=== PATIENT | male | born 1950 | race Two or more races ===

== ENCOUNTER 2018-04-18 17:07 | Emergency (ER) | payer MEDICARE, OTHER ==
[~2018-04-18] VITALS: Ht 172.7 cm; Wt 108.9 kg
[2018-04-18 20:17] LABS: Basophils # (auto) 0 uL; Basophils % (auto) 0.3 % (0.0-2.0); Eosinophils # (auto) 0 uL; Eosinophils % (auto) 0.3 % (0.0-7.0); Hematocrit 47.7 % (41.0-53.0); Hemoglobin 16.1 g/dL (13.5-17.5); Lymphocytes # (auto) 0.9 uL; Lymphocytes % (auto) 6.9 % (10.0-50.0); Mean Corpuscular Hemoglobin 31.3 pg (28.0-32.0); Mean Corpuscular Hgb Conc. 33.7 g/dL (32.0-36.0); Monocytes # (auto) 0.7 uL; Neutrophils # (auto) 11.9 uL; Neutrophils % (auto) 87.5 % (37.0-80.0); Nucleated Red Blood Cells % 0.1 %; Platelet Count (auto) 192 10^3/uL (140-450); Red Blood Cells 5.13 10^6/uL (4.5-5.90); Red Cell Distribution Width 14.1 % (11.8-14.3); White Blood Cell 13.6 10^3/uL (4.4-10.8)
[2018-04-18 20:18] LABS: INR 0.99 (0.9-1.15); Partial Thromboplastin Time 28.2 sec (23.78-33.04); Prothrombin Time 10.6 sec (9.27-12.13)
[2018-04-18 20:21] LABS: Albumin 4.1 g/dL (3.4-5.0); Anion Gap 6 (5-15); Calcium 8.7 mg/dL (8.5-10.1); Carbon Dioxide 28 mmol/L (21-32); Chloride 105 mmol/L (98-107); Glucose 146 mg/dL (74-106); Lipase 74 U/L (73-393); Potassium 4.3 mmol/L (3.5-5.1); Sodium 139 mmol/L (136-145)
[2018-04-18 20:27] LABS: Alanine Aminotransferase 73 U/L (16-61); Alkaline Phosphatase 121 U/L (45-117); Aspartate Aminotransferase 51 U/L (15-37); BUN/Creatinine Ratio 12.8; Blood Urea Nitrogen 17 mg/dL (7-18); GFR African American 69 mL/min; GFR Non-African American 57 mL/min; Total Protein 7.9 g/dL (6.4-8.2)
[2018-04-18] MEDS ORDERED: ONDANSETRON HCL 4 MG/2 ML VIAL IV ONE (23:45)
[2018-04-18] MEDS ORDERED: SODIUM CHLORIDE 0.9% 1,000 ML IV ONE (23:45)
[2018-04-18] MEDS ORDERED: MORPHINE SULFATE 10 MG/ML INJ 1ML SDV IV ONE (23:45)
[2018-04-19 01:28] VITALS: BP 153/58
[2018-04-19 02:21] LABS: Urine Bacteria NONE SEEN /hpf (None Seen); Urine Blood 2+ /uL (Negative); Urine Mucus FEW (None Seen); Urine Specific Gravity 1.024 (1.001-1.035); Urine WBC 6 /hpf (0 - 3)
== END 2018-04-19 01:48 | disposition home or self-care (01) ==
LOC: EDBD 17:07 → ER 17:14
DX: N20.0 Calculus of kidney (principal); N39.0 Urinary tract infection, site not specified; N13.30 Unspecified hydronephrosis; E11.9 Type 2 diabetes mellitus without complications; I10 Essential (primary) hypertension; E78.5 Hyperlipidemia, unspecified
CPT/HCPCS: 36415; 74176; 80053; 81001; 83690; 84484; 85025; 85610; 85730; 93005; 96361; 96374; 96375; 99284; J2270; J2405; J7030

== ENCOUNTER 2021-04-25 09:49 | Inpatient (IN) | payer BC, MEDICARE ==
[~2021-04-25] VITALS: Ht 172.7 cm; Wt 104.8 kg
[2021-04-25 11:13] LABS: Basophils # (auto) 0 10 ^3/uL (0-0.2); Basophils % (auto) 0.6 % (0.0-2.0); Eosinophils # (auto) 0 10 ^3/uL (0-0.8); Eosinophils % (auto) 0.3 % (0.0-7.0); Hematocrit 45.5 % (41.0-53.0); Hemoglobin 15.7 g/dL (13.5-17.5); Lymphocytes # (auto) 0.7 10 ^3/uL (0.4-5.4); Lymphocytes % (auto) 12.4 % (10.0-50.0); Mean Corpuscular Hemoglobin 30.5 pg (28.0-32.0); Mean Corpuscular Hgb Conc. 34.6 g/dL (32.0-36.0); Mean Corpuscular Volume 88.3 fL (80.0-100.0); Monocytes # (auto) 0.6 10 ^3/uL (0-1.3); Monocytes % (auto) 10.6 % (0.0-12.0); Neutrophils # (auto) 4.1 10 ^3/uL (1.6-8.6); Neutrophils % (auto) 76.1 % (37.0-80.0); Nucleated Red Blood Cells % 0.1 %; Red Blood Cells 5.16 10^6/uL (4.5-5.90); Red Cell Distribution Width 13.3 % (11.8-14.3); White Blood Cell 5.4 10^3/uL (4.4-10.8)
[2021-04-25 11:29] LABS: INR 1.04 (0.9-1.15); Partial Thromboplastin Time 32.1 sec (23.6-33.0)
[2021-04-25 11:36] LABS: Albumin 3.6 g/dL (3.4-5.0); BUN/Creatinine Ratio 13.8; Calcium 8.9 mg/dL (8.5-10.1); Magnesium 2.7 mg/dL (1.6-2.6); Potassium 4.4 mmol/L (3.5-5.1)
[2021-04-25 11:50] LABS: Bilirubin, Total 0.5 mg/dL (0.2-1.0); Total Protein 7.8 g/dL (6.4-8.2)
[2021-04-25] MEDS ORDERED: CEFTRIAXONE SODIUM 2 GM in D5W 5% 50 ML IV ONE (12:15)
[2021-04-25] MEDS ORDERED: DexAMETHasone SOD PHOS 10MG/1ML VIAL INJ IV ONE (12:15)
[2021-04-25] MEDS ORDERED: AZITHROMYCIN 500MG/ 250ML 250 ML IV ONE ×2 (12:15→15:45)
[2021-04-25] MEDS ORDERED: MORPHINE SULFATE INJECTION 2 MG/ML SYRG IV PRN ×3 (13:45→16:15)
[2021-04-25] MEDS ORDERED: NITROGLYCERIN 0.4 MG SL TAB SL PRN ×2 (13:45→16:15)
[2021-04-25] MEDS ORDERED: ACETAMINOPHEN 500 MG TAB PO PRN (15:45)
[2021-04-25] MEDS ORDERED: REMDESIVIR PER PHARMACY 0 ML IV SCH (15:45)
[2021-04-25] MEDS ORDERED: DEXTROSE (50%) 50ML SYRG IV PRN (16:00)
[2021-04-25] MEDS ORDERED: hydrALAZINE HCL 20 MG/ML VL IV PRN (16:00)
[2021-04-25] MEDS ORDERED: ONDANSETRON HCL 4 MG/2 ML VIAL IV PRN (16:15)
[2021-04-25] MEDS ORDERED: ALUM & MAG HYDROX-SIMETH LIQ(MAALOX) 30 ML PO PRN (16:15)
[2021-04-25] MEDS ORDERED: HYDROcodone-ACET 5/325MG TAB PO PRN (16:15)
[2021-04-25] MEDS ORDERED: DOCUSATE SOD 100 MG CAP PO PRN (16:15)
[2021-04-25] MEDS ORDERED: LORazepam 0.5 MG TAB PO PRN (16:15)
[2021-04-25] MEDS ORDERED: cefTRIAXone 1GM/50ML D5W 50 ML IV ONE (16:43)
[2021-04-25] MEDS ORDERED: ASPirin 81 mg TAB PO ONE (16:49)
[2021-04-25] MEDS ORDERED: REMDESIVIR 200 MG in NS 210ml LOADING DOSE ADULT IV ONE (19:00)
[2021-04-25] MEDS: ACCU-CHEK COMFORT CURVE STRIP VI SCH ×2 (19:43→22:04)
[2021-04-25] MEDS: InsuLIN REG 1unit/0.01ml Soln (100units/ml) SC SCH ×2 (19:46→22:13)
[2021-04-25 20:30] LABS: Basophils # (auto) 0 10 ^3/uL (0-0.2); Basophils % (auto) 0.3 % (0.0-2.0); Eosinophils # (auto) 0 10 ^3/uL (0-0.8); Eosinophils % (auto) 0.1 % (0.0-7.0); Hematocrit 42.8 % (41.0-53.0); Hemoglobin 14.8 g/dL (13.5-17.5); Lymphocytes # (auto) 0.5 10 ^3/uL (0.4-5.4); Lymphocytes % (auto) 10.4 % (10.0-50.0); Mean Corpuscular Hemoglobin 30.6 pg (28.0-32.0); Mean Corpuscular Hgb Conc. 34.5 g/dL (32.0-36.0); Mean Corpuscular Volume 88.5 fL (80.0-100.0); Monocytes # (auto) 0.2 10 ^3/uL (0-1.3); Neutrophils % (auto) 84.2 % (37.0-80.0); Red Blood Cells 4.84 10^6/uL (4.5-5.90); Red Cell Distribution Width 13.3 % (11.8-14.3); White Blood Cell 4.7 10^3/uL (4.4-10.8)
[2021-04-25 20:47] LABS: Albumin 3.3 g/dL (3.4-5.0); Calcium 8.2 mg/dL (8.5-10.1); Magnesium 3.1 mg/dL (1.6-2.6); Potassium 5.2 mmol/L (3.5-5.1)
[2021-04-25 20:56] LABS: BUN/Creatinine Ratio 15.7; Bilirubin, Total 0.4 mg/dL (0.2-1.0); CRP High Sensitivity 7.81 mg/dL (< 0.3); Total Protein 6.8 g/dL (6.4-8.2)
[2021-04-25 21:20] LABS: Cholesterol 113 mg/dL (< 200); HDL Cholesterol 39 mg/dL (40-59); LDL Cholesterol 55 mg/dL (< 100); Triglycerides 139 mg/dL (< 150)
[2021-04-25 22:00] VITALS: BP 155/86
[2021-04-25] MEDS: BUDESONIDE (INHALATION) 180 MCG IH IN SCH (22:00)
[2021-04-25] MEDS: ATORVASTATIN 20 MG TAB PO SCH (22:04)
[2021-04-25] MEDS: ENOXAPARIN SOD 40 MG/0.4 ML SYRINGE SC SCH (22:05)
[2021-04-25 22:37] VITALS: BP 155/86
[2021-04-25] MEDS: ALBUTEROL SULF HFA 90MCG INH 200DOSE IN PRN (22:55)
[2021-04-25 22:56] LABS: Urine Bacteria NONE SEEN /hpf (None Seen); Urine Blood Negative /uL (Negative); Urine Specific Gravity 1.026 (1.001-1.035); Urine WBC 1 /hpf (0 - 3)
[2021-04-25 23:11] LABS: Amphetamine Screen, Urine NEGATIVE (NEGATIVE); Barbiturate Scree,Urine NEGATIVE (NEGATIVE); Benzodiazephine Screen, Urine NEGATIVE (NEGATIVE); Cannabinoid Screen, Urine NEGATIVE (NEGATIVE); Cocaine Screen, Urine NEGATIVE (NEGATIVE); Opiate Scree,Urine NEGATIVE (NEGATIVE); Phencyclidine Screen, Urine NEGATIVE (NEGATIVE)
[2021-04-25] MEDS ORDERED: METO-289 PO (23:11)
[2021-04-25] MEDS ORDERED: INSLANTI SC (23:11)
[2021-04-25] MEDS ORDERED: LOSA-69 PO (23:11)
[2021-04-25] MEDS ORDERED: METF-370 PO (23:11)
[2021-04-25 23:36] LABS: Thyroid Stimulating Hormone 0.57 uIU/mL (0.358-3.74)
[2021-04-26] MEDS ORDERED: ATOR10TA PO (00:44)
[2021-04-26 05:00] VITALS: BP 164/95
[2021-04-26] MEDS: ACCU-CHEK COMFORT CURVE STRIP VI SCH ×4 (05:51→21:33)
[2021-04-26] MEDS: InsuLIN REG 1unit/0.01ml Soln (100units/ml) SC SCH ×4 (05:57→21:58)
[2021-04-26] MEDS ORDERED: cloNIDine HCL 0.1 MG TAB PO ONE (06:45)
[2021-04-26 07:08] LABS: Basophils # (auto) 0 10 ^3/uL (0-0.2); Basophils % (auto) 0.5 % (0.0-2.0); Eosinophils # (auto) 0 10 ^3/uL (0-0.8); Hematocrit 45.1 % (41.0-53.0); Hemoglobin 15.7 g/dL (13.5-17.5); Lymphocytes # (auto) 0.9 10 ^3/uL (0.4-5.4); Lymphocytes % (auto) 26.3 % (10.0-50.0); Mean Corpuscular Hgb Conc. 34.9 g/dL (32.0-36.0); Mean Corpuscular Volume 88.9 fL (80.0-100.0); Monocytes # (auto) 0.5 10 ^3/uL (0-1.3); Neutrophils % (auto) 59.2 % (37.0-80.0); Nucleated Red Blood Cells % 0.8 %; Red Blood Cells 5.07 10^6/uL (4.5-5.90); White Blood Cell 3.3 10^3/uL (4.4-10.8)
[2021-04-26 07:19] LABS: INR 1.06 (0.9-1.15); Partial Thromboplastin Time 32.7 sec (23.6-33.0)
[2021-04-26] MEDS: BUDESONIDE (INHALATION) 180 MCG IH IN SCH (08:04)
[2021-04-26] MEDS: ALBUTEROL SULF HFA 90MCG INH 200DOSE IN PRN (08:04)
[2021-04-26 09:54] LABS: Bilirubin, Total 0.4 mg/dL (0.2-1.0); Phosphorus 3.7 mg/dL (2.5-4.90); Total Protein 7.6 g/dL (6.4-8.2)
[2021-04-26] MEDS: cefTRIAXone 1GM/50ML D5W 50 ML IV SCH (10:02)
[2021-04-26] MEDS: ZINC SULFATE 220mg CAP or TAB PO SCH (10:02)
[2021-04-26] MEDS: ASPirin 81 mg TAB PO SCH (10:02)
[2021-04-26] MEDS: LOSARTAN POTASSIUM 25 MG TAB PO SCH (10:03)
[2021-04-26] MEDS: ASCORBIC ACID 1,000 MG TAB PO SCH (10:03)
[2021-04-26] MEDS: CHOLECALCIFEROL (VITD3) 2,000 UNIT CAP/TAB PO SCH (10:03)
[2021-04-26] MEDS: METOPROLOL SUCCINATE XL 50 MG TAB PO SCH (10:04)
[2021-04-26] MEDS: DexAMETHasone SOD PHOS 10MG/1ML VIAL INJ IV SCH (10:04)
[2021-04-26] MEDS: ENOXAPARIN SOD 40 MG/0.4 ML SYRINGE SC SCH ×2 (10:04→21:33)
[2021-04-26 10:07] LABS: BUN/Creatinine Ratio 14.6; Calcium 8.5 mg/dL (8.5-10.1); Magnesium 3.2 mg/dL (1.6-2.6)
[2021-04-26 10:08] LABS: Uric Acid 4.2 mg/dL (3.5-7.2)
[2021-04-26 10:24] VITALS: BP 142/79
[2021-04-26] MEDS: AZITHROMYCIN 500MG/ 250ML 250 ML IV SCH (11:02)
[2021-04-26 13:00] VITALS: BP 149/85
[2021-04-26] MEDS: REMDESIVIR 100mg 100 MG in SODIUM CHL 0.9% 230 ML IV SCH (15:30)
[2021-04-26 15:40] VITALS: BP 151/84
[2021-04-26 16:59] VITALS: BP 143/81
[2021-04-26] MEDS: ATORVASTATIN 20 MG TAB PO SCH (21:33)
[2021-04-26 22:00] VITALS: BP 160/77
[2021-04-27] MEDS: BUDESONIDE (INHALATION) 180 MCG IH IN SCH ×3 (01:25→21:20)
[2021-04-27] MEDS: ALBUTEROL SULF HFA 90MCG INH 200DOSE IN PRN ×2 (01:25→09:41)
[2021-04-27 05:00] VITALS: BP 138/71
[2021-04-27] MEDS: ACCU-CHEK COMFORT CURVE STRIP VI SCH ×4 (06:04→22:00)
[2021-04-27] MEDS: InsuLIN REG 1unit/0.01ml Soln (100units/ml) SC SCH ×4 (06:16→22:00)
[2021-04-27] MEDS: CHOLECALCIFEROL (VITD3) 2,000 UNIT CAP/TAB PO SCH (08:37)
[2021-04-27] MEDS: ASPirin 81 mg TAB PO SCH (08:37)
[2021-04-27] MEDS: DexAMETHasone SOD PHOS 10MG/1ML VIAL INJ IV SCH (08:38)
[2021-04-27] MEDS: ASCORBIC ACID 1,000 MG TAB PO SCH (08:38)
[2021-04-27] MEDS: LOSARTAN POTASSIUM 25 MG TAB PO SCH (08:38)
[2021-04-27] MEDS: ENOXAPARIN SOD 40 MG/0.4 ML SYRINGE SC SCH ×2 (08:39→22:00)
[2021-04-27] MEDS: METOPROLOL SUCCINATE XL 50 MG TAB PO SCH (08:39)
[2021-04-27] MEDS: cefTRIAXone 1GM/50ML D5W 50 ML IV SCH (08:39)
[2021-04-27] MEDS: ZINC SULFATE 220mg CAP or TAB PO SCH (08:39)
[2021-04-27 09:00] VITALS: BP 138/76
[2021-04-27] MEDS: AZITHROMYCIN 500MG/ 250ML 250 ML IV SCH (09:39)
[2021-04-27 13:00] VITALS: BP 146/79
[2021-04-27] MEDS: REMDESIVIR 100mg 100 MG in SODIUM CHL 0.9% 230 ML IV SCH (13:53)
[2021-04-27 14:43] LABS: Potassium 4.8 mmol/L (3.5-5.1)
[2021-04-27 14:54] LABS: BUN/Creatinine Ratio 20.4; Calcium 8.8 mg/dL (8.5-10.1)
[2021-04-27] MEDS: PANTOPRAZOLE 40 MG/10 ML VIAL INJ IV SCH ×2 (15:15→22:00)
[2021-04-27] MEDS ORDERED: INSULIN LISPRO (HUMAN) 100 UNITS/ML ML SC ONE (15:15)
[2021-04-27 17:00] VITALS: BP 138/72
[2021-04-27 22:00] VITALS: BP 134/84
[2021-04-27] MEDS: ATORVASTATIN 20 MG TAB PO SCH (22:00)
[2021-04-28 05:00] VITALS: BP 142/75
[2021-04-28] MEDS: ACCU-CHEK COMFORT CURVE STRIP VI SCH ×4 (06:30→22:02)
[2021-04-28] MEDS: InsuLIN REG 1unit/0.01ml Soln (100units/ml) SC SCH ×4 (06:34→22:13)
[2021-04-28] MEDS: BUDESONIDE (INHALATION) 180 MCG IH IN SCH ×2 (07:57→21:45)
[2021-04-28] MEDS: ALBUTEROL SULF HFA 90MCG INH 200DOSE IN PRN ×2 (07:57→21:46)
[2021-04-28 08:40] LABS: BUN/Creatinine Ratio 22.4; Bilirubin, Total 0.5 mg/dL (0.2-1.0); Calcium 8.8 mg/dL (8.5-10.1); Total Protein 6.7 g/dL (6.4-8.2)
[2021-04-28 09:00] VITALS: BP 143/79
[2021-04-28] MEDS: ENOXAPARIN SOD 40 MG/0.4 ML SYRINGE SC SCH ×2 (10:00→22:15)
[2021-04-28] MEDS: cefTRIAXone 1GM/50ML D5W 50 ML IV SCH (10:20)
[2021-04-28] MEDS: ZINC SULFATE 220mg CAP or TAB PO SCH (10:21)
[2021-04-28] MEDS: PANTOPRAZOLE 40 MG/10 ML VIAL INJ IV SCH ×2 (10:21→22:15)
[2021-04-28] MEDS: AZITHROMYCIN 500MG/ 250ML 250 ML IV SCH (10:21)
[2021-04-28] MEDS: ASPirin 81 mg TAB PO SCH (10:21)
[2021-04-28] MEDS: DexAMETHasone SOD PHOS 10MG/1ML VIAL INJ IV SCH (10:21)
[2021-04-28] MEDS: ASCORBIC ACID 1,000 MG TAB PO SCH (10:22)
[2021-04-28] MEDS: CHOLECALCIFEROL (VITD3) 2,000 UNIT CAP/TAB PO SCH (10:22)
[2021-04-28] MEDS: METOPROLOL SUCCINATE XL 50 MG TAB PO SCH (10:22)
[2021-04-28 13:00] VITALS: BP 119/70
[2021-04-28] MEDS: REMDESIVIR 100mg 100 MG in SODIUM CHL 0.9% 230 ML IV SCH (15:00)
[2021-04-28 16:52] VITALS: BP 135/71
[2021-04-28 22:00] VITALS: BP 133/71
[2021-04-28] MEDS: INSULIN LANTUS (GLARGINE) 1 /0.01ml (100units/ml) SC SCH (22:02)
[2021-04-28] MEDS: ATORVASTATIN 20 MG TAB PO SCH (22:15)
[2021-04-29 05:00] VITALS: BP 124/70
[2021-04-29] MEDS: BUDESONIDE (INHALATION) 180 MCG IH IN SCH (05:54)
[2021-04-29] MEDS: ALBUTEROL SULF HFA 90MCG INH 200DOSE IN PRN (05:55)
[2021-04-29] MEDS: ACCU-CHEK COMFORT CURVE STRIP VI SCH (06:46)
[2021-04-29] MEDS: InsuLIN REG 1unit/0.01ml Soln (100units/ml) SC SCH (06:50)
[2021-04-29] MEDS: INSULIN LANTUS (GLARGINE) 1 /0.01ml (100units/ml) SC SCH (06:52)
[2021-04-29 08:22] LABS: Basophils # (auto) 0 10 ^3/uL (0-0.2); Basophils % (auto) 0.1 % (0.0-2.0); Eosinophils # (auto) 0 10 ^3/uL (0-0.8); Eosinophils % (auto) 0.1 % (0.0-7.0); Hemoglobin 14.1 g/dL (13.5-17.5); Lymphocytes # (auto) 1.2 10 ^3/uL (0.4-5.4); Lymphocytes % (auto) 24.6 % (10.0-50.0); Mean Corpuscular Hemoglobin 30.2 pg (28.0-32.0); Mean Corpuscular Hgb Conc. 34.3 g/dL (32.0-36.0); Mean Corpuscular Volume 88.1 fL (80.0-100.0); Monocytes # (auto) 0.6 10 ^3/uL (0-1.3); Monocytes % (auto) 12.6 % (0.0-12.0); Neutrophils # (auto) 3.1 10 ^3/uL (1.6-8.6); Neutrophils % (auto) 62.6 % (37.0-80.0); Nucleated Red Blood Cells % 0.3 %; Red Blood Cells 4.66 10^6/uL (4.5-5.90); Red Cell Distribution Width 13.3 % (11.8-14.3)
[2021-04-29 08:33] LABS: Calcium 8.4 mg/dL (8.5-10.1)
[2021-04-29 08:39] LABS: Albumin 2.8 g/dL (3.4-5.0); BUN/Creatinine Ratio 22.1; Bilirubin, Total 0.5 mg/dL (0.2-1.0); Total Protein 5.8 g/dL (6.4-8.2)
[2021-04-29 09:00] VITALS: BP 126/69
[2021-04-29] MEDS: DexAMETHasone SOD PHOS 10MG/1ML VIAL INJ IV SCH (09:10)
[2021-04-29] MEDS: cefTRIAXone 1GM/50ML D5W 50 ML IV SCH (09:10)
[2021-04-29] MEDS: ASPirin 81 mg TAB PO SCH (09:10)
[2021-04-29] MEDS: ZINC SULFATE 220mg CAP or TAB PO SCH (09:10)
[2021-04-29] MEDS: METOPROLOL SUCCINATE XL 50 MG TAB PO SCH (09:10)
[2021-04-29] MEDS: PANTOPRAZOLE 40 MG/10 ML VIAL INJ IV SCH (09:10)
[2021-04-29] MEDS: AZITHROMYCIN 500MG/ 250ML 250 ML IV SCH (09:10)
[2021-04-29] MEDS: CHOLECALCIFEROL (VITD3) 2,000 UNIT CAP/TAB PO SCH (09:11)
[2021-04-29] MEDS: ASCORBIC ACID 1,000 MG TAB PO SCH (09:11)
[2021-04-29] MEDS: ENOXAPARIN SOD 40 MG/0.4 ML SYRINGE SC SCH (09:11)
[2021-04-29 10:03] VITALS: BP 126/69
[2021-04-29] MEDS ORDERED: ASCO500T11 PO (10:17)
[2021-04-29] MEDS ORDERED: ALBUAER3 IN (10:17)
[2021-04-29] MEDS ORDERED: METF-929 PO (10:17)
[2021-04-29] MEDS ORDERED: ASPI1CHW15 PO (10:17)
[2021-04-29] MEDS ORDERED: ZINC220C10 PO (10:17)
[2021-04-29] MEDS ORDERED: CHOL500035 PO (10:17)
== END 2021-04-29 11:30 | disposition home or self-care (01) | DRG 177 ==
LOC: ER 09:49 → TELE 13:31 → TELE-EAST 20:45
PROVIDERS: ADMIT Hospitalist; ATTEND Internal Medicine
PROC: XW033E5 Introduction of Remdesivir Anti-infective into Peripheral Vein, Percutaneous Approach, New Technology Group 5 (ICD-10-PCS; principal; 2021-04-25)
DX: U07.1 COVID-19 (principal); J12.82 Pneumonia due to coronavirus disease 2019; J96.01 Acute respiratory failure with hypoxia; J98.11 Atelectasis; E11.65 Type 2 diabetes mellitus with hyperglycemia; D89.839 Cytokine release syndrome, grade unspecified; K21.9 Gastro-esophageal reflux disease without esophagitis; E66.01 Morbid (severe) obesity due to excess calories; E78.5 Hyperlipidemia, unspecified; I10 Essential (primary) hypertension; Z79.4 Long term (current) use of insulin; Z79.899 Other long term (current) drug therapy; Z68.33 Body mass index [BMI] 33.0-33.9, adult
CPT/HCPCS: 36415; 71045; 80048; 80053; 80061; 80307; 81001; 82306; 82728; 82962; 83036; 83605; 83615; 83735; 83880; 84100; 84443; 84484; 84550; 85025; 85379; 85610; 85730; 86141; 87040; 87086; 87088; 87186; 87426; 93005; 94640; 96365; 96367; 96375; C9113; G0378; J0696; J1100; J1815; J7060

== ENCOUNTER 2022-05-24 13:16 | Emergency (ER) | payer MEDICARE ==
[~2022-05-24] VITALS: Ht 172.7 cm; Wt 114.0 kg
[~2022-05-24 13:16] MED LIST: ALBUAER3 IN; ASCO500T11 PO; ASPI1CHW15 PO; ATOR10TA PO; CHOL500035 PO; INSLANTI SC; LOSA-69 PO; METF-929 PO; METO-289 PO; ZINC220C10 PO
[2022-05-24] MEDS ORDERED: InsuLIN REG 1unit/0.01ml Soln (100units/ml) IV ONE (14:00)
[2022-05-24] MEDS ORDERED: SODIUM CHLORIDE 0.9% 1,000 ML IV ONE (14:00)
[2022-05-24 14:24] LABS: Basophils # (auto) 0 10 ^3/uL (0-0.2); Basophils % (auto) 0.5 % (0.0-2.0); Eosinophils # (auto) 0.1 10 ^3/uL (0-0.8); Eosinophils % (auto) 1.4 % (0.0-7.0); Hematocrit 43.1 % (41.0-53.0); Hemoglobin 14.6 g/dL (13.5-17.5); Lymphocytes # (auto) 1.4 10 ^3/uL (0.4-5.4); Lymphocytes % (auto) 18.9 % (10.0-50.0); Mean Corpuscular Hemoglobin 30.7 pg (28.0-32.0); Mean Corpuscular Hgb Conc. 33.9 g/dL (32.0-36.0); Mean Corpuscular Volume 90.5 fL (80.0-100.0); Monocytes # (auto) 0.5 10 ^3/uL (0-1.3); Monocytes % (auto) 7.4 % (0.0-12.0); Neutrophils # (auto) 5.2 10 ^3/uL (1.6-8.6); Neutrophils % (auto) 71.8 % (37.0-80.0); Nucleated Red Blood Cells % 0.1 %; Red Blood Cells 4.77 10^6/uL (4.5-5.90); White Blood Cell 7.3 10^3/uL (4.4-10.8)
[2022-05-24 14:43] LABS: Albumin 3.7 g/dL (3.4-5.0); BUN/Creatinine Ratio 12.2; Calcium 9.6 mg/dL (8.5-10.1)
[2022-05-24 14:46] LABS: Bilirubin, Total 0.6 mg/dL (0.2-1.0); Total Protein 7.2 g/dL (6.4-8.2)
[2022-05-24 16:29] VITALS: BP 164/78
== END 2022-05-24 16:33 | disposition home or self-care (01) ==
LOC: ER 13:16
DX: E11.65 Type 2 diabetes mellitus with hyperglycemia (principal); I10 Essential (primary) hypertension; E78.5 Hyperlipidemia, unspecified; Z79.899 Other long term (current) drug therapy
CPT/HCPCS: 36415; 80053; 82962; 85025; 96360; 96361; 99283; J7030